=== PATIENT | male | born 1970 | race Caucasian/White ===

== ENCOUNTER 2021-02-17 08:21 | Outpatient (CLI) | payer BC | END 2021-02-17 08:22 | disposition home or self-care (01) | LOC: CSHULT 08:21 | PROVIDERS: ATTEND Family Medicine | DX: Z82.49 Family history of ischemic heart disease and other diseases of the circulatory system (principal) | CPT/HCPCS: 76706 ==

== ENCOUNTER 2021-09-07 08:09 | Outpatient (CLI) | payer BC | END 2021-09-07 08:10 | disposition home or self-care (01) | LOC: CSHCT 08:09 | PROVIDERS: ATTEND Internal Medicine Cardiovascular Disease | DX: I77.810 Thoracic aortic ectasia (principal); N28.89 Other specified disorders of kidney and ureter | CPT/HCPCS: 71275 ==